=== PATIENT | female | born 1975 | race Caucasian/White ===

== ENCOUNTER 2017-05-29 11:48 | Emergency (ER) | payer OTHER ==
[2017-05-29 12:36] LABS: BASOPHILS # (AUTO) 0.1 10^3/uL (0.0-0.1); BASOPHILS % (AUTO) 0.8 %; EOSINOPHILS # (AUTO) 0.2 10^3/uL (0.0-0.7); HGB - HEMOGLOBIN 13.9 g/dL (12.0-16.0); LYMPHOCYTES # (AUTO) 0.3 10^3/uL (1.5-3.5); LYMPHOCYTES % (AUTO) 3.4 %; MEAN CORPUSCULAR HEMOGLOBIN 30.9 pg (27.0-31.0); MEAN CORPUSCULAR HGB CONC 34.5 g/dL (32.0-36.0); MEAN CORPUSCULAR VOLUME 89.6 fL (81.0-99.0); MEAN PLATELET VOLUME 8.6 fL (7.9-10.8); MONOCYTES # (AUTO) 0.2 10^3/uL (0.0-1.0); MONOCYTES % (AUTO) 2.7 %; NEUTROPHILS # (AUTO) 6.7 10^3/uL (1.5-6.6); NEUTROPHILS % (AUTO) 91.1 %; PLT - PLATELET COUNT 201 10^3/uL (130-450); RED CELL DISTRIBUTION WIDTH 13.3 % (12.0-15.0); WHITE BLOOD COUNT 7.4 x10^3/uL (4.8-10.8)
[2017-05-29 12:45] LABS: CALCIUM 9.9 mg/dL (8.5-10.3); CREATININE 0.7 mg/dL (0.4-1.0)
[2017-05-29] MEDS ORDERED: predniSONE 20 MG TABLET PO STA (12:56)
--- NOTE | 2017-05-29 12:56 | ED Physician Documentation ---
History of Present Illness - Stated complaint Stated Complaint: SOA/NUMBNESS ON HANDS - Chief complaint Chief Complaint: Resp - History obtained from History obtained from: Patient - History of Present Illness Timing: How many days ago (2) Pain level max: 0 Pain level now: 0 Improved by: albuterol Worsened by: exposure to dogs. - Additonal information Additional information: states history of asthma and allergies to dogs. Visiting from out of town and is staying in a house with dogs. States that she is using her albuterol q 4hrs. Has not been intubated before. Is not taking allergy meds. Review of Systems Ten Systems: 10 systems reviewed and negative Constitutional: denies: Fever, Chills Nose: reports: Rhinorrhea / runny nose, Congestion Throat: denies: Sore throat Cardiac: denies: Chest pain / pressure Respiratory: reports: Dyspnea, Cough, Wheezing GI: denies: Nausea, Vomiting, Diarrhea Skin: denies: Rash Musculoskeletal: denies: Neck pain, Back pain Neurologic: denies: Headache PD PAST MEDICAL HISTORY - Past Medical History Past Medical History: Yes Respiratory: Asthma - Present Medications Home Medications: Ambulatory Orders Medication Instructions Recorded Confirmed Albuterol 05/29/17 Albuterol Sulf [Ventolin Hfa 1 - 2 puffs INH Q4HR PRN #1 inhaler 05/29/17 Inhaler] predniSONE [Prednisone] 40 mg PO DAILY #10 tablet 05/29/17 - Allergies Allergies/Adverse Reactions: Allergies Allergy/AdvReac Type Severity Reaction Status Date / Time No Known Drug Allergies Allergy Verified 05/29/17 11:54 - Living Situation Living Situation: reports: With family Living Arrangement: reports: At home - Social History Does the pt smoke?: No Smoking Status: Never smoker Does the pt drink ETOH?: No PD ED PE NORMAL - Vitals Vital signs reviewed: Yes - General General: Alert and oriented X 3, No acute distress, Well developed/nourished - HEENT HEENT: PERRL, Moist mucous membranes - Neck Neck: Supple, no meningeal sign - Cardiac Cardiac: RRR, Strong equal pulses - Respiratory Respiratory: No respiratory distress, Other (wheezing B) - Abdomen Abdomen: Soft, Non tender, Non distended - Derm Derm: Warm and dry, No rash - Extremities Extremities: No edema, No calf tenderness / cord - Neuro Neuro: Alert and oriented X 3 - Psych Psych: Normal mood, Normal affect Results - Vitals Vitals: Vital Signs - 24 hr 05/29/17 05/29/17 05/29/17 11:51 13:29 13:40 Temperature 37.3 C Heart Rate 122 H 88 89 Respiratory 18 18 20 Rate Blood Pressure 124/67 109/68 O2 Saturation 100 98 Oxygen O2 Source Room air - Labs Labs: Laboratory Tests 05/29/17 05/29/17 12:27 12:27 WBC 7.4 RBC 4.50 Hgb 13.9 Hct 40.4 MCV 89.6 MCH 30.9 MCHC 34.5 RDW 13.3 Plt Count 201 MPV 8.6 Neut # 6.7 H Lymph # 0.3 L Cochran # 0.2 Eos # 0.2 Baso # 0.1 Absolute Nucleated RBC 0.00 Nucleated RBC % 0.0 Sodium 135 Potassium 3.5 Chloride 104 Carbon Dioxide 19 L Anion Gap 12.0 BUN 14 Creatinine 0.7 Estimated GFR (MDRD) 93 Glucose 113 H Calcium 9.9 PD MEDICAL DECISION MAKING - ED course Complexity details: reviewed results, re-evaluated patient, considered differential, d/w patient, d/w family ED course: Patient is a 41-year-old female who presents to the emergency department with what appears to be an asthma exacerbation secondary to allergies likely from pets. Given a nebulizer treatment here and feels better. Will place on steroids as well. We will continue her inhalers at home and follow-up with her doctor. No evidence of sepsis, pneumonia, hypoxia, respiratory distress. Patient and family counseled regarding signs and symptoms for which I believe and urgent re-evaluation would be necessary. Patient with good understanding of and agreement to plan and is comfortable going home at this time This document was made in part using voice recognition software. While efforts are made to proofread this document, sound alike and grammatical errors may occur. Departure - Departure Disposition: 01 Home, Self Care Clinical Impression: Asthma Qualifiers: Asthma severity: unspecified severity Asthma persistence: unspecified Asthma complication type: with acute exacerbation Qualified Code(s): J45.901 - Unspecified asthma with (acute) exacerbation Condition: Good Instructions: ED Bronchitis Asthmatic Follow-Up: Provider,Other [Primary Care Provider] - Within 1 week Prescriptions: Albuterol Sulf [Ventolin Hfa Inhaler] 1 - 2 puffs INH Q4HR PRN #1 inhaler PRN Reason: Shortness Of Air/Wheezing predniSONE [Prednisone] 40 mg PO DAILY #10 tablet Comments: Use the inhaler as prescribed. Return if you worsen. Follow-up with your doctor for further care. Discharge Date/Time: 05/29/17 13:41
[2017-05-29] MEDS ORDERED: IPRATROPIUM/ALBUTEROL 3 ML NEB INH STA (12:57)
[2017-05-29 13:42] VITALS: BP 109/68
== END 2017-05-29 13:41 | disposition home or self-care (01) ==
LOC: ED 11:48
DX: J45.901 Unspecified asthma with (acute) exacerbation (principal); Z91.048 Other nonmedicinal substance allergy status
CPT/HCPCS: 36415; 80048; 85025; 94664; 99283; J7512; J7620